=== PATIENT | male | born 1965 | race African-American/Black ===

== ENCOUNTER 2019-09-03 08:11 | Emergency (ER) | payer OTHER ==
[2019-09-03] MEDS ORDERED: Lidocaine 1% w/Epinephrine 1:100K 20 ML VIAL ONE (09:46)
== END 2019-09-03 10:44 | disposition home or self-care (01) ==
LOC: ERS 08:11
DX: L02.215 Cutaneous abscess of perineum (principal); I10 Essential (primary) hypertension; F17.210 Nicotine dependence, cigarettes, uncomplicated; F32.9 Major depressive disorder, single episode, unspecified
CPT/HCPCS: 10060

== ENCOUNTER 2021-03-11 16:32 | Emergency (ER) | payer OTHER ==
[2021-03-11] MEDS ORDERED: traMADol HCl 50 MG TAB ONE (17:33)
== END 2021-03-11 17:55 | disposition home or self-care (01) ==
LOC: ERS 16:32
DX: M25.432 Effusion, left wrist (principal); I10 Essential (primary) hypertension; F17.210 Nicotine dependence, cigarettes, uncomplicated

== ENCOUNTER 2025-09-12 11:36 | Emergency (ER) | payer OTHER ==
[2025-09-12 13:16] LABS: Bacteria/HPF None Seen HPF (None Seen); CAUTI Indications for Culture Dysuria,urgency,freq; Glucose, Urine (Dipstick) Greater than 1000 mg/dL (Negative); Leukocyte Negative Leu/uL (Negative); Protein, Urine (Dipstick) Negative (Neg-Trace); RBC/HPF None Seen HPF (0-3); Specific Gravity, Urine 1.032 (1.002-1.036); WBC/HPF 0-3 HPF (0-3)
[2025-09-12 13:19] LABS: Urine Culture Reflex No No
[2025-09-12 13:29] LABS: #Basophils 0.03 10x3/uL (0.0-0.2); #Eosinophils 0.06 10x3/uL (0.0-0.7); #Monocytes 0.84 10x3/uL (0.11-0.59); #Neutrophils 9.59 10x3/uL (1.40-6.50); %Basophils 0.3 % (0.0-1.0); %Eosinophils 0.5 % (0.0-10.0); %Lymphocytes 10.4 % (21.0-51.0); %Monocytes 7.1 % (0.0-10.0); %Neutrophils 81.2 % (42.0-75.0); Hematocrit 48.2 % (42.0-52.0); Hemoglobin 15.5 g/dL (14.0-18.0); Mean Corpuscular Hemoglobin 26.1 pg (27.0-31.0); Mean Corpuscular Volume 81.3 fL (78.0-98.0); Platelet Count 192 10x3/uL (130-400); Red Blood Cell (RBC) Count 5.93 mill/uL (4.70-6.10); White Blood Cell (WBC) Count 11.81 10x3/uL (4.8-10.8)
[2025-09-12 13:45] LABS: ALT (SGPT) 14 U/L (Less than 45); AST (SGOT) 13 U/L (11-34); Albumin 3.2 g/dL (3.1-4.5); Alkaline Phosphatase 62 U/L (40-110); Anion Gap 12 mmol/L (10-20); BUN (Urea Nitrogen) 13 mg/dL (8.4-25.7); Bilirubin, Total 0.4 mg/dL (0.3-1.2); Calc. Creatinine Clearance 0 mL/min (70-130); Calcium 9.0 mg/dL (7.8-10.44); Carbon Dioxide 24 mmol/L (22-29); Chloride 108 mmol/L (98-107); Globulin 3.1 g/dL (2.4-3.5); Glucose 184 mg/dL (70-105); Potassium 4.2 mmol/L (3.5-5.1); Sodium 140 mmol/L (136-145)
== END 2025-09-12 14:18 | disposition home or self-care (01) ==
LOC: ERS 11:36
DX: N49.2 Inflammatory disorders of scrotum (principal); E11.9 Type 2 diabetes mellitus without complications; I10 Essential (primary) hypertension; Z87.891 Personal history of nicotine dependence
CPT/HCPCS: 10060; 80053; 81001; 85025; 96374; J2270